=== PATIENT | male | born 1985 | race Caucasian/White ===

== ENCOUNTER → 2017-03-08 | Outpatient (CLI) | payer BC ==
--- NOTE | 2017-03-08 19:24 | US ---
EXAMINATION TYPE: US thyroid st tissue head/neck DATE OF EXAM: 03/08/2017 COMPARISON: NONE CLINICAL HISTORY: I88.9 LYMPHADENITIS. Patient stated had swollen left upper neck glands associated w ith bronchitis; had course of antibiotics for bronchitis and swelling has decreased. Right upper neck heterogeneous oval mass is noted = 2.3 x 1.5 x 0.9cm and may be lymph node. On left upper neck small oval lymph val appearing mass is imaged = 2.3 x 1.2 x 0.5cm. Smaller node is image d mid lateral neck. IMPRESSION: There is demonstration of a dominant right cervical lymph node that measures 23 x 9 x 15 mm. There is no evidence of an abscess.
== END | disposition home or self-care (01) ==
LOC: RADUSWWP 16:05
PROVIDERS: ATTEND Family Medicine
DX: E04.1 Nontoxic single thyroid nodule (principal)
CPT/HCPCS: 76536

== ENCOUNTER → 2017-04-30 | Day surgery (SDC) | payer BC ==
[~2017-04-30] MED LIST: ALPRAZolam 0.5 MG TAB PO STA; RX INFO: IV CONTRAST WAS GIVEN 1 EACH MISC MISCELLANE PRN
[2017-04-30 09:26] VITALS: RESP 14; TEMP 97.5
[2017-04-30 10:32] VITALS: BP 136/84; PULSE 83
--- NOTE | 2017-04-30 10:50 | US ---
ULTRASOUND GUIDED FNA THYROID BIOPSY: CLINICAL HISTORY: Question of a right neck mass FINDINGS: The procedure was explained to the patient. The risks, complications, benefits and alternatives were discussed and any questions were answered. Informed consent was obtained. Patient was placed supin e on the ultrasound table and prepped and draped in the usual sterile fashion. Utilizing a 25 gauge needle, five passes were made into the requested right neck mass. Patient was stable throughout the procedure. Pathology is pending. All elements of maximal barrier technique were utilized. IMPRESSION: 1. Successful ultrasound guided FNA thyroid biopsy.
--- NOTE | 2017-04-30 11:54 | CT ---
EXAMINATION TYPE: CT soft tissue neck w con DATE OF EXAM: 04/30/2017 HISTORY: Bilateral neck masses, strong family history of lymphoma COMPARISON: NONE CT DLP: 336.3 mGycm. Automated Exposure Control for Dose Reduction was Utilized. TECHNIQUE: CT scan of the neck is performed with IV Contrast, patient injected with 100 mL of Omnipa que 300, axial images are obtained, coronal and sagittal reformatted images are reviewed. FINDINGS: Airway: No gross abnormality seen. Parotid/submandibular glands: The submandibular glands appear symmetric. No surrounding inflammatory change is seen. Parotid glands are also symmetric with no surrounding inflammatory change. Carotid/Vascular Structures: No hemodynamically significant stenosis of the visualized carotid arteri al system. There is a normal anatomic branch pattern of the aortic arch and great vessels. Osseous Structures: Osseous structures appear intact. Adenopathy: No additional adenopathy is seen within the head or neck. Other: Medial to the sternocleidomastoid and lateral to the carotid bifurcation and anterior to the i nternal jugular there is a an approximately 1.5 x 1.0 x 2.5 cm heterogenous, likely arterial enhancin g mass with similar-appearing smaller mass medial to the carotid bifurcation on series 3 image 54 sulma suring 0.7 x 0.7 x 1.3 cm these are seen on coronal images 27 and 26 best. This is thought to corresp ond to the recently biopsied mass. Minimal amount of the increased density may represent postbiopsy h emorrhage. 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 Consider ations are for pericardial glioma, glomus tumor, minor salivary gland tumor or adenopathy. Pathology pending.
== END ==
LOC: RADPROMAIN 09:05
PROVIDERS: ATTEND Otolaryngology
DX: C73 Malignant neoplasm of thyroid gland (principal); Z80.7 Family history of other malignant neoplasms of lymphoid, hematopoietic and related tissues
CPT/HCPCS: 88305; 88173; 88342; 88341; 76942; 10022; 70491; Q9967; 20206

== ENCOUNTER 2017-05-09 13:34 | Emergency (ER) | payer BC, OTHER ==
[2017-05-09] MEDS ORDERED: SODIUM CHLORIDE 0.9% 1,000 ML IV STA ×2 (14:23)
[2017-05-09] MEDS ORDERED: KETOROLAC 30 MG/ML 1 ML VIAL IVP STA (14:23)
[2017-05-09] MEDS ORDERED: ACETAMINOPHEN IV (For NPO) 1,000 MG in EMPTY BAG 1 BAG IVPB STA (14:23)
[2017-05-09] MEDS ORDERED: ONDANSETRON 4 MG/2 ML VIAL IVP STA (14:23)
[2017-05-09] MEDS ORDERED: DIAZEPAM 5 MG/ML 2 ML INJ IVP STA (14:23)
[2017-05-09 14:40] LABS: Basophils # (A) 0.1 k/uL (0-0.2); Basophils % (A) 1 %; Eosinophils # (A) 0.1 k/uL (0-0.7); Eosinophils % (A) 1 %; HCT 45.5 % (39.0-53.0); HGB 14.9 gm/dL (13.0-17.5); Lymphocytes # (A) 1.5 k/uL (1.0-4.8); Lymphocytes % (A) 13 %; MCH 29.6 pg (25.0-35.0); MCHC 32.8 g/dL (31.0-37.0); MCV 90.2 fL (80.0-100.0); Mean Platelet Volume 7.2; Monocytes # (A) 0.5 k/uL (0-1.0); Monocytes % (A) 4 %; Neutrophils # (A) 9.2 k/uL (1.3-7.7); Neutrophils % (A) 80 %; Platelet Count 287 k/uL (150-450); RBC 5.04 m/uL (4.30-5.90); RDW 13.7 % (11.5-15.5); WBC 11.5 k/uL (3.8-10.6)
[2017-05-09] MEDS: SODIUM CHLORIDE 0.9% 500 ML IV STA ×2 (14:40→16:18)
[2017-05-09 14:47] LABS: Partial Thromboplastin Time 23.9 sec (22.0-30.0); Prothrombin Time 9.7 sec (9.0-12.0)
--- NOTE | 2017-05-09 14:51 | ED ---
General Adult HPI - General Chief complaint: Dizziness Stated complaint: Dizzy Time Seen by Provider: 05/09/17 14:16 Source: patient, RN notes reviewed, old records reviewed Mode of arrival: ambulatory Limitations: no limitations - History of Present Illness Initial comments: this is a 32-year-old male to the ER for evasive weakness nausea vomiting recent diarrheal illness. Patient has strong significant medical history including history of recent diagnosis of thyroid cancer. Patient is currently going to follow-up. Patient states he started feeling not himself last night with fevers chills shakes, difficulty with speech and thought process. Patient was seen by friends and family earlier today and he said he is significantly not himself and speaking appropriately and acting appropriately. Patient himself feels like his speech is very pressured he has a hard time finding words he is feels very significant very weak with continued tremors and sweating. - Related Data Home Medications Medication Instructions Recorded Confirmed ALPRAZolam [Xanax] 0.5 mg PO TID PRN 04/24/17 05/09/17 Cetirizine HCl [Zyrtec] 10 mg PO DAILY 04/30/17 05/09/17 Omeprazole 20 mg PO DAILY 05/09/17 05/09/17 Venlafaxine HCl [Effexor] 75 mg PO BID 05/09/17 05/09/17 traMADol HCL [Ultram] 50 mg PO TID PRN 05/09/17 05/09/17 Allergies Allergy/AdvReac Type Severity Reaction Status Date / Time No Known Allergies Allergy Verified 05/09/17 14:04 Review of Systems ROS Statement: Those systems with pertinent positive or pertinent negative responses have been documented in the HPI. ROS Other: All systems not noted in ROS Statement are negative. Past Medical History Past Medical History: Cancer, GERD/Reflux Additional Past Medical History / Comment(s): crohn's disease, thyroid cancer History of Any Multi-Drug Resistant Organisms: None Reported Additional Past Surgical History / Comment(s): ulnar transposition surgery, from [facility] [place] Past Anesthesia/Blood Transfusion Reactions: No Reported Reaction Past Psychological History: Anxiety, PTSD Smoking Status: Former smoker Past Alcohol Use History: Occasional Past Drug Use History: Marijuana - Past Family History Father Family Medical History: No Reported History General Exam Limitations: no limitations General appearance: alert, in no apparent distress, anxious Head exam: Present: atraumatic, normocephalic, normal inspection Eye exam: Present: normal appearance, PERRL, EOMI. Absent: scleral icterus, conjunctival injection, periorbital swelling ENT exam: Present: normal exam, mucous membranes moist Neck exam: Present: normal inspection. Absent: tenderness, meningismus, lymphadenopathy Respiratory exam: Present: normal lung sounds bilaterally. Absent: respiratory distress, wheezes, rales, rhonchi, stridor Cardiovascular Exam: Present: normal rhythm, tachycardia, normal heart sounds. Absent: systolic murmur, diastolic murmur, rubs, gallop, clicks GI/Abdominal exam: Present: soft, normal bowel sounds. Absent: distended, tenderness, guarding, rebound, rigid Extremities exam: Present: normal inspection, full ROM, normal capillary refill. Absent: tenderness, pedal edema, joint swelling, calf tenderness Back exam: Present: normal inspection Neurological exam: Present: alert, oriented X3, CN II-XII intact Psychiatric exam: Present: normal affect, normal mood Skin exam: Present: warm, dry, intact, normal color. Absent: rash Course Vital Signs 05/09/17 05/09/17 13:39 16:29 Temperature 98.2 F Pulse Rate 87 97 Respiratory 16 18 Rate Blood Pressure 146/83 127/79 O2 Sat by Pulse 98 97 Oximetry EKG Findings - EKG Comments: EKG Findings:: EKG shows normal sinus rhythm rate of 72, MI 140, QRS 74, QTC 407 Medical Decision Making - Medical Decision Making 32 male the ER for evaluation. Patient is at this point feels kristen improved, has no currently no N.V, bladder, anxiety is improved and he feels good to be discharged home - Lab Data Result diagrams: 05/09/17 14:17 05/09/17 14:17 Lab Results 05/09/17 05/09/17 05/09/17 Range/Units 14:17 14:17 14:17 WBC 11.5 H (3.8-10.6) k/uL RBC 5.04 (4.30-5.90) m/uL Hgb 14.9 (13.0-17.5) gm/dL Hct 45.5 (39.0-53.0) % MCV 90.2 (80.0-100.0) fL MCH 29.6 (25.0-35.0) pg MCHC 32.8 (31.0-37.0) g/dL RDW 13.7 (11.5-15.5) % Plt Count 287 (150-450) k/uL Neutrophils % 80 % Lymphocytes % 13 % Monocytes % 4 % Eosinophils % 1 % Basophils % 1 % Neutrophils # 9.2 H (1.3-7.7) k/uL Lymphocytes # 1.5 (1.0-4.8) k/uL Monocytes # 0.5 (0-1.0) k/uL Eosinophils # 0.1 (0-0.7) k/uL Basophils # 0.1 (0-0.2) k/uL PT (9.0-12.0) sec INR (<1.2) APTT (22.0-30.0) sec Sodium 142 (137-145) mmol/L Potassium 3.9 (3.5-5.1) mmol/L Chloride 105 (98-107) mmol/L Carbon Dioxide 25 (22-30) mmol/L Anion Gap 12 mmol/L BUN 11 (9-20) mg/dL Creatinine 0.80 (0.66-1.25) mg/dL Est GFR (MDRD) Af Amer >60 (>60 ml/min/1.73 sqM) Est GFR (MDRD) Non-Af >60 (>60 ml/min/1.73 sqM) Glucose 91 (74-99) mg/dL Plasma Lactic Acid Chucho (0.7-2.0) mmol/L Calcium 10.0 (8.4-10.2) mg/dL Phosphorus 3.6 (2.5-4.5) mg/dL Magnesium 2.0 (1.6-2.3) mg/dL Total Bilirubin 0.4 (0.2-1.3) mg/dL AST 23 (17-59) U/L ALT 25 (21-72) U/L Alkaline Phosphatase 79 (38-126) U/L Total Creatine Kinase 70 (55-170) U/L CK-MB (CK-2) 0.6 (0.0-2.4) ng/mL CK-MB (CK-2) Rel Index 0.9 Troponin I <0.012 (0.000-0.034) ng/mL Total Protein 7.5 (6.3-8.2) g/dL Albumin 4.8 (3.5-5.0) g/dL TSH 1.190 (0.465-4.680) mIU/L 05/09/17 05/09/17 Range/Units 14:17 14:17 WBC (3.8-10.6) k/uL RBC (4.30-5.90) m/uL Hgb (13.0-17.5) gm/dL Hct (39.0-53.0) % MCV (80.0-100.0) fL MCH (25.0-35.0) pg MCHC (31.0-37.0) g/dL RDW (11.5-15.5) % Plt Count (150-450) k/uL Neutrophils % % Lymphocytes % % Monocytes % % Eosinophils % % Basophils % % Neutrophils # (1.3-7.7) k/uL Lymphocytes # (1.0-4.8) k/uL Monocytes # (0-1.0) k/uL Eosinophils # (0-0.7) k/uL Basophils # (0-0.2) k/uL PT 9.7 (9.0-12.0) sec INR 1.0 (<1.2) APTT 23.9 (22.0-30.0) sec Sodium (137-145) mmol/L Potassium (3.5-5.1) mmol/L Chloride (98-107) mmol/L Carbon Dioxide (22-30) mmol/L Anion Gap mmol/L BUN (9-20) mg/dL Creatinine (0.66-1.25) mg/dL Est GFR (MDRD) Af Amer (>60 ml/min/1.73 sqM) Est GFR (MDRD) Non-Af (>60 ml/min/1.73 sqM) Glucose (74-99) mg/dL Plasma Lactic Acid Chucho 0.7 (0.7-2.0) mmol/L Calcium (8.4-10.2) mg/dL Phosphorus (2.5-4.5) mg/dL Magnesium (1.6-2.3) mg/dL Total Bilirubin (0.2-1.3) mg/dL AST (17-59) U/L ALT (21-72) U/L Alkaline Phosphatase (38-126) U/L Total Creatine Kinase (55-170) U/L CK-MB (CK-2) (0.0-2.4) ng/mL CK-MB (CK-2) Rel Index Troponin I (0.000-0.034) ng/mL Total Protein (6.3-8.2) g/dL Albumin (3.5-5.0) g/dL TSH (0.465-4.680) mIU/L - Radiology Data Radiology results: report reviewed (CT brain, chest x-rays negative), image reviewed Disposition Clinical Impression: Dehydration, Anxiety, Nausea and vomiting Disposition: HOME SELF-CARE Condition: Good Instructions: Dizziness (ED), Acute Nausea and Vomiting (ED) Referrals: Dionte Salvador MD [Primary Care Provider] - 1-2 days
[2017-05-09 14:54] LABS: ALT 25 U/L (21-72); AST 23 U/L (17-59); Albumin 4.8 g/dL (3.5-5.0); Alkaline Phosphatase 79 U/L (38-126); Anion Gap 12 mmol/L; Blood Urea Nitrogen 11 mg/dL (9-20); Carbon Dioxide 25 mmol/L (22-30); Chloride 105 mmol/L (98-107); Creatine Kinase 70 U/L (55-170); Glucose 91 mg/dL (74-99); Phosphorus 3.6 mg/dL (2.5-4.5); Potassium 3.9 mmol/L (3.5-5.1); Sodium 142 mmol/L (137-145); Total Bilirubin 0.4 mg/dL (0.2-1.3); Total Protein 7.5 g/dL (6.3-8.2)
[2017-05-09 15:06] LABS: Creatine Kinase MB 0.6 ng/mL (0.0-2.4); Troponin I <0.012 ng/mL (0.000-0.034)
--- NOTE | 2017-05-09 15:07 | CT ---
EXAMINATION TYPE: CT brain wo con DATE OF EXAM: 05/09/2017 COMPARISON: NONE HISTORY: 32-year-old male Dizziness. Recent diagnosis of thyroid CA. TECHNIQUE: Examination was done in axial plane without intravenous contrast. Coronal and sagittal r econstructions performed. CT DLP: 950.9 mGycm Automated exposure control for dose reduction was used. FINDINGS: There is no evidence of acute intracranial hemorrhage, acute ischemic changes, mass, mass-effect, or extra-axial fluid collection. There is no effacement of cerebral sulci or basal subarachnoid cister ns. There is no hydrocephalus. There is no midline shift. Rosas-white matter distinction is preserv ed. Paranasal sinuses and mastoid air cells are well pneumatized. Orbits and globes are intact. IMPRESSION: No acute intracranial abnormality seen.
--- NOTE | 2017-05-09 15:18 | XR ---
EXAMINATION TYPE: XR chest 2V DATE OF EXAM: 05/09/2017 COMPARISON: NONE HISTORY: Syncope TECHNIQUE: Frontal and lateral views of the chest are obtained. FINDINGS: There is no focal air space opacity, pleural effusion, or pneumothorax seen. The cardiac silhouette size is within normal limits. The osseous structures are intact. IMPRESSION: No acute cardiopulmonary process.
[2017-05-09] MEDS ORDERED: MORPHINE SULFATE 2 MG/ML SYRINGE IVP ONE (15:23)
[2017-05-09] MEDS ORDERED: LORazepam 2 MG/ML INJ IV STA (15:23)
[2017-05-09] MEDS ORDERED: diphenhydrAMINE 50 MG/ML 1 ML VIAL IVP STA (15:23)
[2017-05-09 16:30] VITALS: RESP 18
[2017-05-09 17:09] VITALS: BP 125/61; PULSE 79; TEMP 97.8
== END 2017-05-09 17:09 | disposition home or self-care (01) ==
LOC: EC 13:34
DX: E86.0 Dehydration (principal); R11.2 Nausea with vomiting, unspecified; F41.9 Anxiety disorder, unspecified; K21.9 Gastro-esophageal reflux disease without esophagitis; Z85.850 Personal history of malignant neoplasm of thyroid; Z87.891 Personal history of nicotine dependence; Z79.899 Other long term (current) drug therapy
CPT/HCPCS: 99285; 96374; 96375 ×5; 96361 ×2; 36415; 93005; 80053; 82550; 82553; 83605; 83735; 84100; 84443; 84484; 85025; 85610; 85730; 87040; 71046; 70450; J2060; J3360; J2405; J1885; J2270; J0131

== ENCOUNTER → 2017-05-09 | Outpatient (CLI) | payer BC ==
[2017-05-09 13:58] LABS: Basophils # (A) 0.1 k/uL (0-0.2); Basophils % (A) 1 %; Eosinophils # (A) 0.1 k/uL (0-0.7); Eosinophils % (A) 0 %; HCT 47.4 % (39.0-53.0); HGB 15.7 gm/dL (13.0-17.5); Lymphocytes # (A) 1.6 k/uL (1.0-4.8); Lymphocytes % (A) 13 %; MCHC 33.2 g/dL (31.0-37.0); MCV 93.1 fL (80.0-100.0); Mean Platelet Volume 7.2; Monocytes # (A) 0.6 k/uL (0-1.0); Monocytes % (A) 5 %; Neutrophils # (A) 9.8 k/uL (1.3-7.7); Neutrophils % (A) 79 %; Platelet Count 290 k/uL (150-450); RBC 5.09 m/uL (4.30-5.90); RDW 14.3 % (11.5-15.5); WBC 12.3 k/uL (3.8-10.6)
[2017-05-09 14:15] LABS: Calcium 10.2 mg/dL (8.4-10.2)
[2017-05-09 14:27] LABS: T4, Free (Free Thyroxine) 1.18 ng/dL (0.78-2.19)
[2017-05-09 18:36] LABS: Vitamin D 25 Hydroxy 22.7 ng/mL (30.0-100.0)
[2017-05-09 19:16] LABS: Parathyroid Hormone Intact 25.4 pg/mL (14.0-72.0)
== END | disposition home or self-care (01) ==
LOC: LABWHC1 13:10
PROVIDERS: ATTEND Nurse Practitioner Family
DX: C73 Malignant neoplasm of thyroid gland (principal); R53.83 Other fatigue; K11.7 Disturbances of salivary secretion
CPT/HCPCS: 36415; 82306; 82310; 83970; 84439; 84443; 85025

== ENCOUNTER 2017-08-21 21:15 | Emergency (ER) | payer BC ==
[2017-08-21 21:35] VITALS: BP 127/84; PULSE 101; RESP 20; TEMP 98.6
[2017-08-21] MEDS ORDERED: PROPARACAINE 0.5% OPHTH DROPS 15 ML BTL RIGHT EYE STA (21:50)
[2017-08-21] MEDS ORDERED: PROPARACAINE 0.5% OPHTH DROPS 15 ML BTL ONE (21:51)
[2017-08-21] MEDS ORDERED: TOBRAMYCIN 0.3% OPHTH DROPS 5 ML BTL RIGHT EYE STA (22:01)
--- NOTE | 2017-08-21 22:07 | ED ---
Eye Problem HPI - General Chief complaint: Eye Problems Stated complaint: FB eye Time Seen by Provider: 08/21/17 21:49 Source: patient, RN notes reviewed Mode of arrival: ambulatory Limitations: no limitations - History of Present Illness Initial comments: This is a 32-year-old male who presents to the emergency department with chief complaint of foreign body in his right eye. Patient states that at approximately 8:30 this evening he was laying in a hammock drinking a Mar[place]. He states that he heard squirrels running above him in the trees and looked up. He then was hit in the eye by what he believes to be a piece of wood. He states that he did notice a foreign body in his eye and to tried to remove it with a Q-tip but was unsuccessful. Denies any significant eye pain, but does state that he has difficulty opening his eye because it has been tearing excessively. Denies any changes in vision. Denies recent fevers or chills, chest pain or shortness breath, abdominal pain, nausea or vomiting. - Related Data Home Medications Medication Instructions Recorded Confirmed ALPRAZolam [Xanax] 0.5 mg PO TID PRN 04/24/17 08/21/17 Cetirizine HCl [Zyrtec] 10 mg PO DAILY 04/30/17 08/21/17 traMADol HCL [Ultram] 50 mg PO TID PRN 05/09/17 08/21/17 Levothyroxine Sodium [Synthroid] 137 mcg PO DAILY 08/21/17 08/21/17 Omeprazole 40 mg PO BID PRN 08/21/17 08/21/17 Ondansetron HCl [Zofran] 4 mg PO BID PRN 08/21/17 08/21/17 Venlafaxine HCl [Effexor XR] 150 mg PO DAILY 08/21/17 08/21/17 Allergies Allergy/AdvReac Type Severity Reaction Status Date / Time No Known Allergies Allergy Verified 08/21/17 21:41 Review of Systems ROS Statement: Those systems with pertinent positive or pertinent negative responses have been documented in the HPI. ROS Other: All systems not noted in ROS Statement are negative. Past Medical History Past Medical History: Cancer, GERD/Reflux Additional Past Medical History / Comment(s): crohn's disease, thyroid cancer History of Any Multi-Drug Resistant Organisms: None Reported Additional Past Surgical History / Comment(s): ulnar transposition surgery, from [facility] Past Anesthesia/Blood Transfusion Reactions: No Reported Reaction Past Psychological History: Anxiety, PTSD Smoking Status: Former smoker Past Alcohol Use History: Occasional Past Drug Use History: Marijuana - Past Family History Father Family Medical History: No Reported History General Exam - General Exam Comments Initial Comments: General: Awake and alert, well-developed; in no apparent distress. is at bedside. HEENT: Head atraumatic, normocephalic. Pupils are equal, round and reactive to light. Extraocular movements intact. There is a small, brown foreign body at approximately 3 PM in relation to the right iris. Right conjunctiva is mildly injected. On fluorescein staining, there is a small punctate corneal abrasion where the foreign body was located. No other foreign bodies noted. Oropharynx moist without erythema or exudate. Neck: Supple. Normal ROM. Cardiovascular: Regular rate and rhythm. No murmurs, rubs or gallops. Chest symmetrical. Respiratory: Lungs clear to auscultation bilaterally. No wheezes, rales or rhonchi. Normal respiratory effort with no use of accessory muscles. Musculoskeletal: Normal ROM, no tenderness bilateral upper and lower extremities. Ambulating normally. Skin: [place], warm and dry without rashes or lesions. Neurological: Alert and oriented x3. CN II-XII grossly intact. Speech is fluent and answers are appropriate. No focal neuro deficits. Psychiatric: Normal mood and affect. No overt signs of depression or anxiety noted. Limitations: no limitations Course Vital Signs 08/21/17 21:33 Temperature 98.6 F Pulse Rate 101 H Respiratory 20 Rate Blood Pressure 127/84 O2 Sat by Pulse 96 Oximetry Medical Decision Making - Medical Decision Making This is a 32-year-old male who presents to the emergency department with chief complaint of foreign body in his right eyelid. The foreign body was noted at approximately 3:00 in relation to the right iris. This was removed successfully with an 18-gauge needle. Patient's eye was fluorescein stained and a small punctate abrasion was noted. Patient will be started on Tobrex eyedrops. He is provided with ophthalmology follow-up. Vital signs are stable and patient is in no acute distress. He'll be discharged home at this time. Disposition Clinical Impression: Corneal abrasion, Corneal foreign body Disposition: HOME SELF-CARE Condition: Good Instructions: Eye Foreign Body (ED), Corneal Abrasion (ED), Tobramycin (Into the eye) Additional Instructions: Please apply 1-2 drops in the affected eye every 4 hours for the next 5 days. Please follow up with ophthalmology if no improvement in symptoms. Please follow up with primary care provider within 1-2 days. Return to emergency department if symptoms should worsen or any concerns arise. Is patient prescribed a controlled substance at d/c from ED?: No Referrals: Dionte Salvador MD [Primary Care Provider] - 1-2 days Alycia Martinez MD [STAFF PHYSICIAN] - 1-2 days Time of Disposition: 22:07
== END 2017-08-21 22:20 | disposition home or self-care (01) ==
LOC: EC 21:15
DX: T15.01XA Foreign body in cornea, right eye, initial encounter (principal); F41.9 Anxiety disorder, unspecified; Z87.891 Personal history of nicotine dependence; Z79.899 Other long term (current) drug therapy; Z85.850 Personal history of malignant neoplasm of thyroid; Y93.89 Activity, other specified; Y92.89 Other specified places as the place of occurrence of the external cause
CPT/HCPCS: 65220; 99283

== ENCOUNTER → 2018-04-14 | Outpatient (CLI) | payer BC ==
[2018-04-14 12:16] LABS: HCT 46.4 % (39.0-53.0); HGB 15.7 gm/dL (13.0-17.5); MCH 31.6 pg (25.0-35.0); MCHC 33.8 g/dL (31.0-37.0); MCV 93.6 fL (80.0-100.0); Mean Platelet Volume 6.9; Platelet Count 237 k/uL (150-450); RBC 4.96 m/uL (4.30-5.90); RDW 12.8 % (11.5-15.5)
[2018-04-14 13:39] LABS: Erythrocyte Sedimentation Rate 2 mm/hr (0-15)
[2018-04-14 19:18] LABS: ALT 21 U/L (10-49); AST 26 U/L (14-35); Albumin/Globulin Ratio 2.61 (1.20-2.10); Alkaline Phosphatase 73 U/L (41-126); C Reactive Protein <0.4 mg/dL (0.0-0.8); Calcium 9.3 mg/dL (8.7-10.3); Carbon Dioxide 23.3 mmol/L (21.6-31.8); Chloride 105 mmol/L (96-109); Globulin 1.8 g/dL (1.6-3.3); Glucose 86 mg/dL (70-110); Sodium 138 mmol/L (135-145); Total Bilirubin 0.8 mg/dL (0.3-1.2); Total Protein 6.5 g/dL (6.2-8.2)
== END | disposition home or self-care (01) ==
LOC: LABWHC1 10:43
PROVIDERS: ATTEND Internal Medicine
DX: K50.00 Crohn's disease of small intestine without complications (principal); R19.7 Diarrhea, unspecified
CPT/HCPCS: 36415; 80053; 83630; 83993; 85027; 85652; 86140; 87045; 87046; 87328; 87329

== ENCOUNTER → 2018-05-15 | Day surgery (SDC) | payer BC, OTHER ==
[~2018-05-15] MED LIST changes: -ALPRAZolam 0.5 MG TAB PO STA; +GLUCAGON 1 MG/ML VIAL IM STA; -RX INFO: IV CONTRAST WAS GIVEN 1 EACH MISC MISCELLANE PRN
[2018-05-15 10:16] VITALS: BP 129/93; PULSE 99; RESP 14; TEMP 98.2
--- NOTE | 2018-05-16 15:26 | MR ---
EXAMINATION TYPE: MR Enterography DATE OF EXAM: 05/15/2018 COMPARISON: None HISTORY: Crohn's disease of small intestine CONTRAST: Standard multiplanar, multisequence imaging of the abdomen is performed without and with IV contrast, patient is injected with 7 mL intravenous Gadavist gadolinium contrast. Oral Volumen and Water was g iven as per enterography protocol. FINDINGS: There is short segment bowel wall thickening and hyperemia with abnormal enhancement of the terminal ileum measuring in length of 3.1 cm. Bowel wall thickening measures approximately 5 mm. No submucosal deposition of fat is seen. No abnormal right lower quadrant or central mesenteric enlarged lymph nod es are noted. No evidence of fistula or pericolonic/perienteric abscess formation. The remainder of t he small bowel enhances homogeneously. No skip lesions are identified. Artifact is noted within the left lobe of the liver from the aorta also seen in the spine. There is a T2 hyperintense nonenhancing 1.8 x 1.3 cm cyst within the inferior right hepatic margin. No intrahep atic biliary ductal dilatation is seen. The remaining visualized portions of the liver enhances homog eneously. Biliary sludge is layering dependently. The spleen, adrenal glands, and pancreas enhances h omogeneously. Kidneys are unremarkable without hydronephrosis or suspicious enhancement. There is rectal dilatation up to 7.5 cm. The remainder of the bowel is nondilated. Fecal stasis is no galileo within the rectum. Bone marrow signal is within normal limits. No sinus tract is seen, however th e low rectum is not imaged. IMPRESSION: Short segment of abnormal enhancement of the terminal ileum with bowel wall thickening and a length o f 3.1 cm representing acute terminal ileitis. No perienteric or pericolonic abscess. No fistula or si nus tract. No abnormal intra-abdominal adenopathy. No skip lesions.
== END ==
LOC: RADMRIMAIN 08:26
PROVIDERS: ATTEND Internal Medicine
DX: K50.00 Crohn's disease of small intestine without complications (principal)
CPT/HCPCS: 96372; 72197; 74183; J1610; A9585

== ENCOUNTER → 2018-06-13 | Outpatient (CLI) | payer OTHER ==
[2018-06-13 21:13] LABS: Hepatitis B Surface AB- Quant 398.4 mIU/mL
== END ==
LOC: LABWHC1 11:58
PROVIDERS: ATTEND Internal Medicine
DX: K50.00 Crohn's disease of small intestine without complications (principal)
CPT/HCPCS: 36415; 86480; 86704; 86706; 87340

== ENCOUNTER → 2019-03-28 | Outpatient (CLI) | payer OTHER ==
--- NOTE | 2019-03-28 13:30 | CT ---
EXAMINATION TYPE: CT chest w con DATE OF EXAM: 03/28/2019 COMPARISON: Prior CT chest 07/30/2012 HISTORY: Papillary thyroid carcinoma CT DLP: 212.3 mGycm Automated exposure control for dose reduction was used. CONTRAST: CT scan of the chest is performed with IV Contrast, patient injected with 100 mL of Isovue 300. FINDINGS: LUNGS: The lungs are remarkable for some minimal subpleural nodularity, axial image 46 5 mm soft tiss ue nodule noted, axial image 44 7 mm focus of increased attenuation, possible post inflammatory hays es are stable, there is no concerning parenchymal mass or nodule identified. There is no pleural ef fusion or pneumothorax seen. The tracheobronchial tree is patent. MEDIASTINUM: There are no greater than 1 cm hilar or mediastinal lymph nodes. No pericardial effusi on is seen. AORTA: No additional significant abnormality is seen. OTHER: Incompletely evaluated hypodense focus with air-fluid level at the inferior margin of the gal lbladder and adjacent to the head of the pancreas is indeterminate at the level of the duodenum. IMPRESSION: There is interval improvement in patient's airspace disease compared to prior exam. Nons pecific subpleural pulmonary nodules of questionable clinical significance, possibly postinflammatory are stable. Indeterminate hypodense focus right upper quadrant as described could be better evaluate d with abdomen CT with intravenous and oral contrast as indicated.
== END | disposition home or self-care (01) ==
LOC: RADCTMAIN 06:59
PROVIDERS: ATTEND Internal Medicine Endocrinology, Diabetes & Metabolism
DX: J98.4 Other disorders of lung (principal); C73 Malignant neoplasm of thyroid gland
CPT/HCPCS: 71260; Q9967

== ENCOUNTER → 2019-05-08 | Outpatient (CLI) | payer OTHER ==
--- NOTE | 2019-05-08 08:42 | US ---
EXAMINATION TYPE: US abdomen complete DATE OF EXAM: 05/08/2019 COMPARISON: MRE dated 05/15/[address] dated 03/28/2019 CLINICAL HISTORY: R93.89 Abnormal findings on diagnostic imaging. CT showed abnormality EXAM MEASUREMENTS: Liver Length: 14.1 cm Gallbladder Wall: 0.2 cm CBD: 0.3 cm Spleen: 10.6 cm Right Kidney: 10.6 x 5.0 x 3.6 cm Left Kidney: 10.9 x 6.0 x 5.4 cm Pancreas: wnl Liver: right posterior lobe cystic appearing lesion = 1.5 x 1.4 x 1.4 cm Gallbladder: wnl Evidence for sonographic Montelongo's sign: neg CBD: wnl Spleen: wnl Right Kidney: No hydronephrosis or masses seen Left Kidney: No hydronephrosis or masses seen Upper IVC: wnl Abd Aorta: No AAA visualized The intrahepatic portion of the IVC and proximal abdominal aorta are within normal limits. There is no evidence of cholelithiasis. Common bile duct is unremarkable. The visualized portions of the lawson creas are homogenous. The spleen is unremarkable. Kidneys are symmetric and free of hydronephrosis. No renal lesions are seen. IMPRESSION: Benign right hepatic cyst. The fluid collection mentioned on the CT chest dated 03/08/2019 anterior to the duodenum appears to connect to the duodenum on the MRE of 05/15/2018 related to an inc idental duodenal diverticulum emanating anteriorly. This is not seen sonographically as bowel is not well delineated on ultrasound.
== END | disposition home or self-care (01) ==
LOC: RADUSWWP 07:09
DX: K76.89 Other specified diseases of liver (principal)
CPT/HCPCS: 76700

== ENCOUNTER → 2021-08-31 | Day surgery (SDC) | payer OTHER ==
[2021-08-31 08:59] VITALS: PULSE 65; RESP 16; TEMP 97.5
--- NOTE | 2021-09-04 22:02 | MR ---
EXAMINATION TYPE: MR Enterography DATE OF EXAM: 08/31/2021 COMPARISON: Prior MR enterography of 06/12/2018. HISTORY: Crohns disease CONTRAST: Standard multiplanar, multisequence imaging of the abdomen is performed without and with IV contrast, patient is injected with 400ml mL intravenous Gadavist gadolinium contrast. Oral Volumen was given a s per enterography protocol. Patient unable to tolerate normal oral volume. FINDINGS: Bowel: Stomach shows adequate distention without suspicious eccentric wall thickening or enhancement. Fairly decent distention of the duodenal sweep without suspicious enhancement or wall thickening. Le ss than optimal fluid-filled distention of small bowel loops throughout the abdomen. No suspicious ec centric wall thickening or enhancement is seen. Terminal ileum has some fluid and debris within the l umen without eccentric wall thickening or suspicious enhancement. Colonic loops show less than ideal fluid distention without obvious suspicious eccentric wall thickening or enhancement. No obvious fist eric or significant stenosis. Other: Incidental 1.3 cm benign-appearing thin-walled cyst in the inferior right hepatic lobe coronal image 10. No abnormal adenopathy. No free fluid. IMPRESSION: Suboptimal study, No MRI evidence for active inflammation currently.
== END ==
LOC: RADMRIMAIN 08:47
DX: K50.90 Crohn's disease, unspecified, without complications (principal)
CPT/HCPCS: 96372; 72197; 74183; J1610; A9585